=== PATIENT | male | born 1940 | race Caucasian/White ===

== ENCOUNTER 2021-11-04 07:59 | Inpatient (IN) | payer MEDICARE ==
[~2021-11-04] VITALS: Ht 190.5 cm; Wt 123.1 kg
--- NOTE | 2021-11-04 08:19 | NUR ---
spoke to dr alegria and sbar pt condition ,also informed pt recived 4 l of n.s ,1 prbc,1 ffp and 1 gm rocephin for leg infection. pt has hx of chf do we have to repeat any test ?as per md order cbc and lactic acid and no need of x ray yet because hasn't seen the pt yet.
[2021-11-04 08:54] LABS: BASOPHILS % (AUTO) 0 % (0-1); EOSINOPHILS % (AUTO) 0 % (0-6); HEMATOCRIT 25.7 % (42.0-52.0); HEMOGLOBIN 8.5 g/dl (14.0-17.9); LYMPHOCYTES # (AUTO) 1.2 X10'3 (1.1-4.8); LYMPHOCYTES % (AUTO) 10.7 % (21-51); MEAN CORPUSCULAR VOLUME 87.9 FL (78-98); MEAN PLATELET VOLUME 7.5 FL (7.4-10.4); MONOCYTES # (AUTO) 0.6 X10'3 (0-0.9); MONOCYTES % (AUTO) 4.8 % (2-12); NEUTROPHILS # (AUTO) 9.8 X10'3 (1.8-7.7); NEUTROPHILS % (AUTO) 84.5 % (42-75); PLATELET COUNT 204 X10'3 (140-440); RED BLOOD COUNT 2.93 X10'6 (4.70-6.10); RED CELL DISTRIBUTION WIDTH 14.9 % (11.5-14.5); WHITE BLOOD COUNT 11.6 X10'3 (4.5-11.0)
--- NOTE | 2021-11-04 09:07 | NUR ---
DR GIL AT BEDSIDE .
[2021-11-04] MEDS ORDERED: morphine 4 MG/ML inj SYRINge IV ONE (09:10)
[2021-11-04] MEDS ORDERED: bisacodyl 10mg suppository rectal RC PRN (09:45)
[2021-11-04] MEDS ORDERED: mag hydrox/Alum hydrox/simeth 30ml oral suspension PO PRN (09:45)
[2021-11-04] MEDS ORDERED: HYDROcodone/acetaminophen 5mg/325mg tablet PO PRN (09:45)
[2021-11-04] MEDS ORDERED: pantoprazole 40MG/NS 100ML BAG 100 ML IV SCH (09:45)
[2021-11-04] MEDS ORDERED: magnesium 4gm in 100ml NS 100 ML IV PRN (09:45)
[2021-11-04] MEDS ORDERED: potassium CL 10mEq/100ml bag 100 ML IV PRN (09:45)
[2021-11-04] MEDS ORDERED: POTASSIUM BICARB 20meq eff tab 20 MEQ TABLET.EFF PO PRN (09:45)
[2021-11-04] MEDS ORDERED: magnesium hydroxide 30ml (MOM) UD suspension PO PRN (09:45)
[2021-11-04] MEDS ORDERED: ondansetron 4mg rapidly disintigrating tab PO PRN (09:45)
[2021-11-04] MEDS ORDERED: HYDROmorphone/PF 0.2 MG/ML SYRINGE IV PRN (09:45)
[2021-11-04] MEDS ORDERED: magnesium Cl slow-release 64mg tablet PO PRN (09:45)
[2021-11-04] MEDS ORDERED: magnesium 2GM in 50ml NS 50 ML IV PRN (09:45)
[2021-11-04] MEDS ORDERED: HYDROcodone/acetaminophen 10/325mg tab PO PRN (09:45)
[2021-11-04] MEDS ORDERED: acetaminophen 650mg rectal suppository RC PRN (09:45)
[2021-11-04] MEDS ORDERED: acetaminophen 325mg tablet PO PRN ×2 (09:45)
[2021-11-04] MEDS ORDERED: morphine 10mg/ml inj. IV ONE (10:00)
--- NOTE | 2021-11-04 10:00 | NUR ---
NOTIFIED MD GIL THAT AFTER RECIVING 6 MG IV MORPHINE PT STILL IN PAIN ,HAS NOT IMPROVED. PER MD HE WILL ORDER MORE PAIN MEDS.
[2021-11-04 10:01] LABS: APTT 31 SECONDS (22-32)
[2021-11-04 10:03] LABS: ALANINE AMINOTRANSFERASE 14 U/L (12-78); ALBUMIN 2.4 G/DL (3.4-5.0); ALBUMIN/GLOBULIN RATIO 0.9 (1.1-1.5); ALKALINE PHOSPHATASE 35 IU/L (46-116); ANION GAP 14 (8-16); ASPARTATE AMINO TRANSFERASE 13 U/L (10-37); BILIRUBIN,TOTAL 0.6 MG/DL (0.1-1.0); BLOOD UREA NITROGEN 30 MG/DL (7-18); BUN/CREATININE RATIO 27.3 (5.4-32.0); CALCIUM 7.2 MG/DL (8.5-10.1); CHLORIDE 110 MMOL/L (99-107); GLUCOSE 170 MG/DL (70-104); POTASSIUM 3.7 MMOL/L (3.5-5.1); SODIUM 144 MMOL/L (135-145); TOTAL CARBON DIOXIDE 20.4 MMOL/L (24-32); TOTAL PROTEIN 5.1 G/DL (6.4-8.2); eGFR 64 ML/MIN
[2021-11-04 10:16] LABS: HEMATOCRIT 24.8 % (42.0-52.0); HEMOGLOBIN 8.1 g/dl (14.0-17.9); MEAN CORPUSCULAR HEMOGLOBIN 28.7 PG (27.0-31.0); MEAN CORPUSCULAR HGB CONC 32.7 g/dL (33.0-36.5); MEAN CORPUSCULAR VOLUME 87.9 FL (78-98); MEAN PLATELET VOLUME 7.4 FL (7.4-10.4); PLATELET COUNT 200 X10'3 (140-440); RED BLOOD COUNT 2.83 X10'6 (4.70-6.10); RED CELL DISTRIBUTION WIDTH 14.7 % (11.5-14.5); WHITE BLOOD COUNT 11.5 X10'3 (4.5-11.0)
[2021-11-04] MEDS: ondansetron/PF 4mg/2ml inj IV PRN ×2 (10:18→19:46)
[2021-11-04] MEDS: normal saline 1000ml 1,000 ML IV SCH (10:20)
--- NOTE | 2021-11-04 11:49 | NUR ---
dr figueroa at bedside.
[2021-11-04] MEDS ORDERED: PERFLUTREN PROTEIN-A MICROSPHR (Optison) 0.22 MG/ML 3ML VIAL IV ONE (12:00)
[2021-11-04] MEDS ORDERED: furosemide 20 MG/2 ML vial IV ONE (12:00)
[2021-11-04] MEDS ORDERED: WARF4TAB69 PO (12:48)
[2021-11-04] MEDS ORDERED: TRIA1TAB3 PO (12:48)
[2021-11-04] MEDS ORDERED: WARF-65 PO (12:48)
[2021-11-04] MEDS ORDERED: [UNRECOGNIZED DRUG - CODE] IV (12:48)
[2021-11-04] MEDS ORDERED: CEPH-585 PO (12:48)
[2021-11-04] MEDS ORDERED: [UNRECOGNIZED DRUG - CODE] IV (12:56)
[2021-11-04] MEDS: cefTRIAXone 1g/NS 100ml IVPB 100 ML IV SCH (13:26)
--- NOTE | 2021-11-04 13:27 | NUR ---
Dr. Palma paged regarding antibiotic order. Dr. Palma stated to none administer rocephin 1 gram due to patient having already received a dose this morning at [facility] and to start dose tomorrow morning. Christiano TORRES aware of orders.
[2021-11-04 16:10] VITALS: BP 108/57
[2021-11-04] MEDS: morphine 4 MG/ML inj SYRINge IV PRN ×2 (17:15→21:12)
[2021-11-04 18:00] VITALS: BP 101/55
--- NOTE | 2021-11-04 18:00 | NUR ---
Patient in room PCU 3012. I have received report from Clarissa and had the opportunity to ask questions and assume patient care.
--- NOTE | 2021-11-04 18:37 | NUR ---
Problems reprioritized. Patient report given, questions answered & plan of care reviewed with MELISSA GONSALEZ.
[2021-11-04] MEDS: furosemide 20 MG/2 ML vial IV SCH (19:54)
[2021-11-04] MEDS: docusate sod 100mg capsule PO SCH (19:54)
[2021-11-04] MEDS: K and/or MAG REPLACEMENT MC SCH (19:55)
[2021-11-04] MEDS: temazepam 15mg capsule PO PRN (21:11)
[2021-11-04 22:00] VITALS: BP 105/43
[2021-11-04 22:15] LABS: HEMATOCRIT 25.1 % (42.0-52.0); MEAN CORPUSCULAR HGB CONC 31.8 g/dL (33.0-36.5); MEAN CORPUSCULAR VOLUME 88.1 FL (78-98); PLATELET COUNT 207 X10'3 (140-440); RED BLOOD COUNT 2.85 X10'6 (4.70-6.10); RED CELL DISTRIBUTION WIDTH 15.1 % (11.5-14.5); WHITE BLOOD COUNT 13.6 X10'3 (4.5-11.0)
[2021-11-05 02:00] VITALS: BP 93/49
[2021-11-05] MEDS: morphine 4 MG/ML inj SYRINge IV PRN (03:41)
[2021-11-05 06:00] VITALS: BP 102/51
[2021-11-05 06:22] LABS: HEMATOCRIT 22.7 % (42.0-52.0); HEMOGLOBIN 7.4 g/dl (14.0-17.9); MEAN CORPUSCULAR HEMOGLOBIN 28.7 PG (27.0-31.0); MEAN CORPUSCULAR HGB CONC 32.8 g/dL (33.0-36.5); MEAN CORPUSCULAR VOLUME 87.5 FL (78-98); MEAN PLATELET VOLUME 7.8 FL (7.4-10.4); PLATELET COUNT 195 X10'3 (140-440); RED BLOOD COUNT 2.59 X10'6 (4.70-6.10); RED CELL DISTRIBUTION WIDTH 15.2 % (11.5-14.5); WHITE BLOOD COUNT 11.5 X10'3 (4.5-11.0)
[2021-11-05 06:29] LABS: APTT 27 SECONDS (22-32)
[2021-11-05 06:42] LABS: ALANINE AMINOTRANSFERASE 15 U/L (12-78); ALBUMIN 2.8 G/DL (3.4-5.0); ALKALINE PHOSPHATASE 39 IU/L (46-116); ANION GAP 6 (8-16); ASPARTATE AMINO TRANSFERASE 17 U/L (10-37); BILIRUBIN,TOTAL 0.5 MG/DL (0.1-1.0); BLOOD UREA NITROGEN 29 MG/DL (7-18); BUN/CREATININE RATIO 29.9 (5.4-32.0); CALCIUM 7.4 MG/DL (8.5-10.1); CHLORIDE 112 MMOL/L (99-107); CREATININE 0.97 MG/DL (0.60-1.10); GLUCOSE 129 MG/DL (70-104); MAGNESIUM 2.5 MG/DL (1.5-2.4); PHOSPHORUS 3.1 MG/DL (2.3-4.5); POTASSIUM 3.6 MMOL/L (3.5-5.1); SODIUM 144 MMOL/L (135-145); TOTAL CARBON DIOXIDE 26.3 MMOL/L (24-32); TOTAL PROTEIN 5.7 G/DL (6.4-8.2); eGFR 74 ML/MIN
--- NOTE | 2021-11-05 07:31 | NUR ---
3012A Ed Barnard labs HGB 7.4 HCT 22.7 GI bleed Eloisa [id number]
[2021-11-05] MEDS: pantoprazole 40mg Tablet.DR PO SCH (07:32)
[2021-11-05] MEDS: docusate sod 100mg capsule PO SCH ×2 (07:33→20:45)
[2021-11-05] MEDS: K and/or MAG REPLACEMENT MC SCH ×2 (08:00→20:00)
[2021-11-05] MEDS: cefTRIAXone 1g/NS 100ml IVPB 100 ML IV SCH (10:02)
[2021-11-05] MEDS: furosemide 20 MG/2 ML vial IV SCH ×2 (10:02→20:00)
[2021-11-05 10:15] LABS: HEMATOCRIT 22.5 % (42.0-52.0); HEMOGLOBIN 7.3 g/dl (14.0-17.9); MEAN CORPUSCULAR HEMOGLOBIN 29.1 PG (27.0-31.0); MEAN CORPUSCULAR HGB CONC 32.5 g/dL (33.0-36.5); MEAN CORPUSCULAR VOLUME 89.8 FL (78-98); MEAN PLATELET VOLUME 7.5 FL (7.4-10.4); PLATELET COUNT 204 X10'3 (140-440); RED CELL DISTRIBUTION WIDTH 15.3 % (11.5-14.5); WHITE BLOOD COUNT 12.4 X10'3 (4.5-11.0)
[2021-11-05 11:00] VITALS: BP 108/49
--- NOTE | 2021-11-05 11:54 | NUR ---
[id number] HBG is 7.3 and HCT 22.5 I [facility] ext [phone]
[2021-11-05 17:06] LABS: HEMATOCRIT 22.3 % (42.0-52.0); HEMOGLOBIN 7.3 g/dl (14.0-17.9); MEAN CORPUSCULAR HGB CONC 32.7 g/dL (33.0-36.5); MEAN CORPUSCULAR VOLUME 88.7 FL (78-98); MEAN PLATELET VOLUME 8.1 FL (7.4-10.4); PLATELET COUNT 200 X10'3 (140-440); RED BLOOD COUNT 2.52 X10'6 (4.70-6.10); RED CELL DISTRIBUTION WIDTH 15.3 % (11.5-14.5); WHITE BLOOD COUNT 11.1 X10'3 (4.5-11.0)
[2021-11-05 18:00] VITALS: BP 101/48
--- NOTE | 2021-11-05 18:30 | NUR ---
Patient in room PCU 3012. I have received report from Eloisa DOZIER and had the opportunity to ask questions and assume patient care.
--- NOTE | 2021-11-05 18:45 | NUR ---
Orientee documentation: I have reviewed and agree with all interventions, assessments performed and documented by JACOBY Amin II.
--- NOTE | 2021-11-05 19:10 | NUR ---
Gave end of shift report to Elayne. All questions were answered.
[2021-11-05 20:47] LABS: HEMATOCRIT 22.7 % (42.0-52.0); HEMOGLOBIN 7.5 g/dl (14.0-17.9); MEAN CORPUSCULAR HEMOGLOBIN 29.2 PG (27.0-31.0); MEAN CORPUSCULAR HGB CONC 32.9 g/dL (33.0-36.5); MEAN CORPUSCULAR VOLUME 88.7 FL (78-98); MEAN PLATELET VOLUME 7.4 FL (7.4-10.4); PLATELET COUNT 210 X10'3 (140-440); RED BLOOD COUNT 2.56 X10'6 (4.70-6.10); RED CELL DISTRIBUTION WIDTH 15.2 % (11.5-14.5); WHITE BLOOD COUNT 12.5 X10'3 (4.5-11.0)
[2021-11-06] VITALS (11 sets, daily range): BP systolic 83–105; BP diastolic 41–54
--- NOTE | 2021-11-06 01:30 | NUR ---
DC julio cath per orders. output 1000ml from cath. bladder scan at 0400.
--- NOTE | 2021-11-06 04:30 | NUR ---
bladder scan done, shows 98cc. straight cath not needed
[2021-11-06] MEDS: normal saline 1000ml 1,000 ML IV SCH (06:00)
--- NOTE | 2021-11-06 06:10 | NUR ---
Problems reprioritized. Patient report given, questions answered & plan of care reviewed with sebas boyd.
[2021-11-06 06:56] LABS: APTT 23 SECONDS (22-32)
[2021-11-06 07:01] LABS: ALANINE AMINOTRANSFERASE 20 U/L (12-78); ALBUMIN 2.7 G/DL (3.4-5.0); ALBUMIN/GLOBULIN RATIO 0.9 (1.1-1.5); ALKALINE PHOSPHATASE 40 IU/L (46-116); ANION GAP 7 (8-16); ASPARTATE AMINO TRANSFERASE 45 U/L (10-37); BILIRUBIN,TOTAL 0.4 MG/DL (0.1-1.0); BLOOD UREA NITROGEN 30 MG/DL (7-18); BUN/CREATININE RATIO 34.1 (5.4-32.0); CALCIUM 7.8 MG/DL (8.5-10.1); CHLORIDE 109 MMOL/L (99-107); CREATININE 0.88 MG/DL (0.60-1.10); GLUCOSE 124 MG/DL (70-104); MAGNESIUM 2.2 MG/DL (1.5-2.4); POTASSIUM 3.2 MMOL/L (3.5-5.1); SODIUM 144 MMOL/L (135-145); TOTAL CARBON DIOXIDE 28.3 MMOL/L (24-32); TOTAL PROTEIN 5.6 G/DL (6.4-8.2); eGFR 83 ML/MIN
--- NOTE | 2021-11-06 07:01 | NUR ---
Received report from Ender.
[2021-11-06 07:13] LABS: MEAN CORPUSCULAR HGB CONC 33.7 g/dL (33.0-36.5); MEAN CORPUSCULAR VOLUME 89.1 FL (78-98); MEAN PLATELET VOLUME 7.9 FL (7.4-10.4); PLATELET COUNT 188 X10'3 (140-440); RED BLOOD COUNT 2.29 X10'6 (4.70-6.10); RED CELL DISTRIBUTION WIDTH 15.5 % (11.5-14.5); WHITE BLOOD COUNT 9.9 X10'3 (4.5-11.0)
[2021-11-06 07:24] LABS: HEMOGLOBIN 6.9 g/dl (14.0-17.9)
[2021-11-06 07:25] LABS: HEMATOCRIT 20.4 % (42.0-52.0)
--- NOTE | 2021-11-06 07:30 | NUR ---
Received critical HGB result from Lab at 07. Notified Primary GAS TREATER Khadijah at 0730.
--- NOTE | 2021-11-06 07:33 | NUR ---
[id number] [facility] HGB 6.9 PLEASE ADVISE DESDAA EXT [id number]
[2021-11-06] MEDS: docusate sod 100mg capsule PO SCH ×2 (07:48→20:54)
[2021-11-06] MEDS: pantoprazole 40mg Tablet.DR PO SCH (07:48)
[2021-11-06] MEDS: K and/or MAG REPLACEMENT MC SCH ×2 (08:00→20:00)
--- NOTE | 2021-11-06 08:30 | NUR ---
AGREE WITH AM ASSESSMENT
--- NOTE | 2021-11-06 08:34 | NUR ---
ROOM 3012A HGB CRITICAL 6.9 HCT 20.4 NEED CONSENT SIGNED. DESAREA EXT [id number]
[2021-11-06] MEDS: furosemide 20 MG/2 ML vial IV SCH ×2 (08:52→21:04)
[2021-11-06] MEDS: cefTRIAXone 1g/NS 100ml IVPB 100 ML IV SCH (08:52)
[2021-11-06] MEDS: POTASSIUM BICARB 20meq eff tab 20 MEQ TABLET.EFF PO PRN ×3 (09:06→17:55)
[2021-11-06] MEDS: ondansetron/PF 4mg/2ml inj IV PRN (13:57)
--- NOTE | 2021-11-06 15:46 | NUR ---
Room 3012A MRSA in nares [facility] ext [phone]
[2021-11-06 17:41] LABS: HEMOGLOBIN 7.5 g/dl (14.0-17.9); MEAN CORPUSCULAR HEMOGLOBIN 29.8 PG (27.0-31.0); MEAN CORPUSCULAR HGB CONC 34.2 g/dL (33.0-36.5); MEAN CORPUSCULAR VOLUME 87.2 FL (78-98); MEAN PLATELET VOLUME 7.5 FL (7.4-10.4); PLATELET COUNT 185 X10'3 (140-440); RED BLOOD COUNT 2.53 X10'6 (4.70-6.10); RED CELL DISTRIBUTION WIDTH 14.6 % (11.5-14.5); WHITE BLOOD COUNT 10.2 X10'3 (4.5-11.0)
--- NOTE | 2021-11-06 17:49 | NUR ---
Critical lab value taken from lab. Reported to primary ANGLESMITH.
--- NOTE | 2021-11-06 17:50 | NUR ---
[id number] CRITICAL LAB HCT 22 HGB 7.5 PLEASE ADVISE DESDAA EXT [id number]
--- NOTE | 2021-11-06 19:39 | NUR ---
GAVE END OF SHIFT REPORT TO LATOYA TORRES. ANSWERED ALL HER QUESTIONS.
[2021-11-07 02:00] VITALS: BP 105/48
[2021-11-07] MEDS: HYDROmorphone inj. 0.5 MG/0.5 ML DISP.SYRIN IV PRN ×2 (02:42→19:47)
[2021-11-07 06:00] VITALS: BP 94/57
--- NOTE | 2021-11-07 06:41 | NUR ---
Patient in room PCU 3012. I have received report from Kizzy and had the opportunity to ask questions and assume patient care.
[2021-11-07 06:42] LABS: BASOPHILS % (AUTO) 0.3 % (0-1); EOSINOPHILS # (AUTO) 0.1 X10'3 (0-0.9); EOSINOPHILS % (AUTO) 1.7 % (0-6); HEMOGLOBIN 7.3 g/dl (14.0-17.9); LYMPHOCYTES # (AUTO) 1.8 X10'3 (1.1-4.8); LYMPHOCYTES % (AUTO) 22.4 % (21-51); MEAN CORPUSCULAR HEMOGLOBIN 29.8 PG (27.0-31.0); MEAN CORPUSCULAR HGB CONC 33.7 g/dL (33.0-36.5); MEAN CORPUSCULAR VOLUME 88.6 FL (78-98); MEAN PLATELET VOLUME 7.3 FL (7.4-10.4); MONOCYTES # (AUTO) 0.6 X10'3 (0-0.9); MONOCYTES % (AUTO) 8.1 % (2-12); NEUTROPHILS # (AUTO) 5.4 X10'3 (1.8-7.7); NEUTROPHILS % (AUTO) 67.5 % (42-75); PLATELET COUNT 193 X10'3 (140-440); RED BLOOD COUNT 2.46 X10'6 (4.70-6.10); RED CELL DISTRIBUTION WIDTH 15.1 % (11.5-14.5)
[2021-11-07 06:51] LABS: ALANINE AMINOTRANSFERASE 21 U/L (12-78); ALBUMIN 2.6 G/DL (3.4-5.0); ALBUMIN/GLOBULIN RATIO 0.9 (1.1-1.5); ALKALINE PHOSPHATASE 40 IU/L (46-116); ANION GAP 7 (8-16); ASPARTATE AMINO TRANSFERASE 35 U/L (10-37); BILIRUBIN,TOTAL 0.4 MG/DL (0.1-1.0); BLOOD UREA NITROGEN 32 MG/DL (7-18); BUN/CREATININE RATIO 37.6 (5.4-32.0); CALCIUM 7.4 MG/DL (8.5-10.1); CHLORIDE 108 MMOL/L (99-107); CREATININE 0.85 MG/DL (0.60-1.10); GLUCOSE 103 MG/DL (70-104); MAGNESIUM 2.2 MG/DL (1.5-2.4); PHOSPHORUS 1.7 MG/DL (2.3-4.5); POTASSIUM 3.1 MMOL/L (3.5-5.1); SODIUM 146 MMOL/L (135-145); TOTAL CARBON DIOXIDE 31.4 MMOL/L (24-32); TOTAL PROTEIN 5.5 G/DL (6.4-8.2); eGFR 87 ML/MIN
[2021-11-07 06:52] LABS: APTT 23 SECONDS (22-32)
[2021-11-07 06:54] LABS: HEMATOCRIT 21.8 % (42.0-52.0)
--- NOTE | 2021-11-07 06:58 | NUR ---
PAGER ID: [phone] MESSAGE: [id number] Ed Barnard- Primo show crtical of HCT 21.8 and Hgb of 7.3. Thanks Eveline [phone] Paged regarding critical HCT
[2021-11-07] MEDS: pantoprazole 40mg Tablet.DR PO SCH (07:35)
[2021-11-07] MEDS: docusate sod 100mg capsule PO SCH ×2 (07:35→20:41)
[2021-11-07] MEDS: POTASSIUM BICARB 20meq eff tab 20 MEQ TABLET.EFF PO PRN ×3 (07:36→15:37)
[2021-11-07] MEDS: cefTRIAXone 1g/NS 100ml IVPB 100 ML IV SCH (07:41)
[2021-11-07] MEDS: furosemide 20 MG/2 ML vial IV SCH ×2 (07:45→20:41)
[2021-11-07] MEDS: ondansetron/PF 4mg/2ml inj IV PRN ×2 (07:55→19:47)
[2021-11-07] MEDS: K and/or MAG REPLACEMENT MC SCH ×3 (08:52→20:00)
--- NOTE | 2021-11-07 09:57 | NUR ---
[id number] MESSAGE: 3012A Ed Barnard- Pt has a 8.69 pause and went into bradycardia in the 30s heart rate last night. Having frequent 2-3sec pauses this morning. [facility] [place] [phone] Kenney regarding pause of HR last night and this morning
[2021-11-07 11:00] VITALS: BP 93/46
[2021-11-07] MEDS ORDERED: magnesium Cl slow-release 64mg tablet PO PRN (11:40)
[2021-11-07] MEDS ORDERED: magnesium 2GM in 50ml NS 50 ML IV PRN (11:40)
[2021-11-07] MEDS ORDERED: potassium CL 10mEq/100ml bag 100 ML IV PRN (11:40)
[2021-11-07] MEDS ORDERED: POTASSIUM BICARB 20meq eff tab 20 MEQ TABLET.EFF PO PRN (11:40)
[2021-11-07] MEDS ORDERED: magnesium 4gm in 100ml NS 100 ML IV PRN (11:40)
[2021-11-07 12:31] LABS: MAGNESIUM 2.3 MG/DL (1.5-2.4); POTASSIUM 3.3 MMOL/L (3.5-5.1)
[2021-11-07 13:38] LABS: BASOPHILS % (AUTO) 0.2 % (0-1); EOSINOPHILS # (AUTO) 0.1 X10'3 (0-0.9); EOSINOPHILS % (AUTO) 1.2 % (0-6); HEMATOCRIT 22.9 % (42.0-52.0); HEMOGLOBIN 7.6 g/dl (14.0-17.9); LYMPHOCYTES # (AUTO) 1.5 X10'3 (1.1-4.8); LYMPHOCYTES % (AUTO) 18.9 % (21-51); MEAN CORPUSCULAR HEMOGLOBIN 29.3 PG (27.0-31.0); MEAN CORPUSCULAR HGB CONC 33.3 g/dL (33.0-36.5); MEAN CORPUSCULAR VOLUME 88.1 FL (78-98); MEAN PLATELET VOLUME 7.4 FL (7.4-10.4); MONOCYTES # (AUTO) 0.6 X10'3 (0-0.9); NEUTROPHILS # (AUTO) 5.6 X10'3 (1.8-7.7); NEUTROPHILS % (AUTO) 71.7 % (42-75); PLATELET COUNT 198 X10'3 (140-440); RED BLOOD COUNT 2.59 X10'6 (4.70-6.10); RED CELL DISTRIBUTION WIDTH 15.1 % (11.5-14.5); WHITE BLOOD COUNT 7.8 X10'3 (4.5-11.0)
[2021-11-07 14:30] LABS: % IRON SATURATION 6 % (11-46); IRON 17 UG/DL (53-167); TOTAL IRON BINDING CAPACITY 264 UG/DL (259-388)
[2021-11-07 15:00] VITALS: BP 105/53
[2021-11-07 18:00] VITALS: BP 115/54
--- NOTE | 2021-11-07 18:24 | NUR ---
Problems reprioritized. Patient report given, questions answered & plan of care reviewed with MELISSA Durand.
--- NOTE | 2021-11-07 19:45 | NUR ---
Agree with JACOBY Mccabe physical assessments. Chelsie TORRES
[2021-11-07] MEDS: temazepam 15mg capsule PO PRN (20:41)
[2021-11-07 22:00] VITALS: BP 110/56
[2021-11-07] MEDS: morphine 4 MG/ML inj SYRINge IV PRN (22:25)
[2021-11-08 02:00] VITALS: BP 125/93
[2021-11-08] MEDS: morphine 4 MG/ML inj SYRINge IV PRN ×2 (03:08→13:16)
--- NOTE | 2021-11-08 03:31 | NUR ---
patient refused wound care and most turns
[2021-11-08] MEDS ORDERED: LORazepam 2 mg/ml vial IM ONE (05:25)
[2021-11-08 06:00] VITALS: BP 110/54
[2021-11-08] MEDS: normal saline 1000ml 1,000 ML IV SCH (06:00)
[2021-11-08 06:20] LABS: ALANINE AMINOTRANSFERASE 29 U/L (12-78); ALBUMIN/GLOBULIN RATIO 0.9 (1.1-1.5); ALKALINE PHOSPHATASE 49 IU/L (46-116); ANION GAP 7 (8-16); ASPARTATE AMINO TRANSFERASE 37 U/L (10-37); BASOPHILS % (AUTO) 0.4 % (0-1); BILIRUBIN,TOTAL 0.5 MG/DL (0.1-1.0); BLOOD UREA NITROGEN 30 MG/DL (7-18); BUN/CREATININE RATIO 28.6 (5.4-32.0); CALCIUM 7.9 MG/DL (8.5-10.1); CHLORIDE 108 MMOL/L (99-107); CREATININE 1.05 MG/DL (0.60-1.10); EOSINOPHILS # (AUTO) 0.2 X10'3 (0-0.9); EOSINOPHILS % (AUTO) 1.7 % (0-6); GLUCOSE 147 MG/DL (70-104); HEMATOCRIT 24.5 % (42.0-52.0); HEMOGLOBIN 8.1 g/dl (14.0-17.9); LYMPHOCYTES # (AUTO) 1.6 X10'3 (1.1-4.8); LYMPHOCYTES % (AUTO) 17.3 % (21-51); MEAN CORPUSCULAR HEMOGLOBIN 29.3 PG (27.0-31.0); MEAN CORPUSCULAR HGB CONC 32.9 g/dL (33.0-36.5); MEAN PLATELET VOLUME 7.4 FL (7.4-10.4); MONOCYTES # (AUTO) 0.7 X10'3 (0-0.9); MONOCYTES % (AUTO) 8.2 % (2-12); NEUTROPHILS # (AUTO) 6.6 X10'3 (1.8-7.7); NEUTROPHILS % (AUTO) 72.4 % (42-75); PHOSPHORUS 1.6 MG/DL (2.3-4.5); PLATELET COUNT 232 X10'3 (140-440); RED BLOOD COUNT 2.76 X10'6 (4.70-6.10); RED CELL DISTRIBUTION WIDTH 15.2 % (11.5-14.5); SODIUM 145 MMOL/L (135-145); TOTAL PROTEIN 6.2 G/DL (6.4-8.2); WHITE BLOOD COUNT 9.1 X10'3 (4.5-11.0); eGFR 68 ML/MIN
[2021-11-08 06:24] LABS: POTASSIUM 2.7 MMOL/L (3.5-5.1)
--- NOTE | 2021-11-08 07:04 | NUR ---
PAGER ID: [phone] MESSAGE: Room: 3012A: Akil: Potassium is 2.7. Will replenish per protocol. MELISSA Saeed [phone]
--- NOTE | 2021-11-08 07:04 | NUR ---
Patient in room PCU 3012. I have received report from MELISSA Durand and had the opportunity to ask questions and assume patient care.
[2021-11-08] MEDS: K and/or MAG REPLACEMENT MC SCH ×2 (08:00)
--- NOTE | 2021-11-08 08:40 | NUR ---
Initial: Pt admitted w/ acute blood loss anemia, supratherapeutic INR, and BLE cellulitis per EMR. Currently on Heart Healthy diet w/ 2L fluid restriction w/ mostly 0-25% PO intake not meeting needs. Recommend Ensure Enlive TID to assist w/ meeting needs as well as liberalizing to Regular diet given poor PO intake. LBM 11/06 receiving routine colace. Will continue to monitor. Recs: 1. Liberalize to Regular diet given poor PO intake. 2L fluid restriction per MD 2. Ensure Enlive TID; pending MD verification 3. Bowel care per rx 4. Weekly wts Addendum: 11/08/21 at [address] Amended: Links added.
[2021-11-08] MEDS: docusate sod 100mg capsule PO SCH (10:24)
[2021-11-08] MEDS: pantoprazole 40mg Tablet.DR PO SCH (10:24)
[2021-11-08] MEDS: furosemide 20 MG/2 ML vial IV SCH (10:37)
[2021-11-08] MEDS: cefTRIAXone 1g/NS 100ml IVPB 100 ML IV SCH (10:38)
[2021-11-08 11:00] VITALS: BP 92/48
[2021-11-08] MEDS ORDERED: potassium Cl 20 mEq SR tablet PO PRN ×4 (11:09→11:10)
[2021-11-08] MEDS ORDERED: lactose-reduced food (Ensure Enlive) - 237ml bottle PO SCH (13:00)
--- NOTE | 2021-11-08 14:02 | NUR ---
PAGER ID: [phone] MESSAGE: Room: 3012A: Pt's potassium is 3.0. I will give them another dose of potassium. Are we still transferring them to [facility], today? MELISSA Saeed [phone]
--- NOTE | 2021-11-08 15:55 | NUR ---
Pt discharged to [facility] via [facility]. Report provided over the phone to the receiving facility. All questions answered prior to discharage. The pt's daughter was also notified of the pt's transfer to another facility. PIV and telemetry removed. Belongings were returned at the time of discharge.
== END 2021-11-08 15:20 | DRG 871 ==
LOC: ER 08:00 → ED HOLD 09:48 → PCU 3S 16:01
PROVIDERS: ADMIT Family Medicine; ATTEND Family Medicine
PROC: 30233N1 Transfusion of Nonautologous Red Blood Cells into Peripheral Vein, Percutaneous Approach (ICD-10-PCS; principal; 2021-11-06)
DX: A41.9 Sepsis, unspecified organism (principal); I50.33 Acute on chronic diastolic (congestive) heart failure; K92.2 Gastrointestinal hemorrhage, unspecified; L03.115 Cellulitis of right lower limb; L03.116 Cellulitis of left lower limb; D68.32 Hemorrhagic disorder due to extrinsic circulating anticoagulants; D62 Acute posthemorrhagic anemia; T45.515A Adverse effect of anticoagulants, initial encounter; N40.0 Benign prostatic hyperplasia without lower urinary tract symptoms; K21.9 Gastro-esophageal reflux disease without esophagitis; I48.91 Unspecified atrial fibrillation; E78.5 Hyperlipidemia, unspecified; G31.84 Mild cognitive impairment of uncertain or unknown etiology; I11.0 Hypertensive heart disease with heart failure; I25.10 Atherosclerotic heart disease of native coronary artery without angina pectoris; Z53.20 Procedure and treatment not carried out because of patient's decision for unspecified reasons; G89.29 Other chronic pain; I95.9 Hypotension, unspecified; Y92.89 Other specified places as the place of occurrence of the external cause; Z79.01 Long term (current) use of anticoagulants; Z95.1 Presence of aortocoronary bypass graft; Z86.711 Personal history of pulmonary embolism; Z88.8 Allergy status to other drugs, medicaments and biological substances
CPT/HCPCS: 36415; 36430; 80053; 82948; 83540; 83550; 83605; 83735; 84100; 84132; 85025; 85027; 85610; 85730; 86885; 86900; 86901; 86920; 87081; 93306; 96374; 97110; 97161; 97530; 99291; C9113; G0378; J0696; J1170; J1940; J2060; J2270; J2274; J2405; J7030; P9016